=== PATIENT | female | born 1990 | race African-American/Black ===

== ENCOUNTER 2023-09-21 07:09 | Inpatient (IN) | payer MEDICAID ==
[~2023-09-21] VITALS: Ht 165.1 cm; Wt 133.2 kg
[2023-09-21] VITALS (18 sets, daily range): BP systolic 85–140; BP diastolic 48–97; PULSE 59–79; TEMP 97.8–98.7
[~2023-09-21 07:09] MED LIST: IBU800 M1 PO; PERCOCET 325 MG1 TA2 PO
[2023-09-21] MEDS ORDERED: LR 1,000 ML IV SCH (07:15)
--- NOTE | 2023-09-21 07:15 | NUR ---
0715PT AND SPOUSE AMBULATORY TO UNIT FOR SCHEDULED RPT C/S. PT CHANGED INTO GOWN. PT COMFORTABLE IN BED. 0720THIS RN AT BEDSIDE TO PLACE TOCO AND EFM. EFM TRACING CAT I. PT REPORTS PLENTY OF POSITIVE MOVEMENT. PT DENIES ANY CTX. PT DENIES ANY LOF AND DENIES VAGINAL BLEEDING. 0725AMY RN STARTS IV AT THIS TIME. FIRST BAG OF IVF STARTED.
[2023-09-21] MEDS ORDERED: FERROUS SU325 MG/TAB PO (07:38)
[2023-09-21] MEDS ORDERED: PRENATAL TABLET PO (07:38)
[2023-09-21 07:54] LABS: BASO % 0.3 % (0.0-2.0); EOS # 0.1 K/mm3 (0.0-0.7); EOS % 0.9 % (0.0-4.0); GRAN # 4.7 K/mm3 (1.4-6.5); GRAN % 63.4 % (42.2-75.2); HEMATOCRIT 32.3 % (37.0-47.0); LYMPH # 1.9 K/mm3 (1.2-3.4); LYMPH % 26.2 % (20.0-51.0); MEAN CELL VOLUME 65 fl (80.0-100.0); MEAN CORPUSCULAR HEMOGLOBIN 20 pg (27-31); MEAN CORPUSCULAR HGB CONC 31 g/dl (33.0-37.0); MONO # 0.7 K/mm3 (0.1-0.6); MONO % 8.8 % (1.7-9.3); PLATELET COUNT 174 K/mm3 (130-400); RED BLOOD COUNT 4.96 M/mm3 (4.10-5.30); REDCELL DISTRIBUTION WIDTH-CV 16.8 % (11.5-14.5)
--- NOTE | 2023-09-21 08:00 | NUR ---
THIS RN AT BEDSIDE TO GO OVER CONSENTS WITH PT AND SPOUSE. PT STATES SHE REFUSES HEPATITIS B VACCINE, VITAMIN K VACCINE, AND ERYTHROMYCIN EYE OINTMENT. THIS RN DISCUSSES RISK/BENEFIT ABOUT THESE REFUSALS. PT AND SPOUSE VERBALIZES UNDERSTANDING. THIS RN WALKS PARENTS THROUGH THE PROCESS OF 24 HOUR BABY LABS AND HOW THEY WORK. PT VERBALIZES REFUSAL FOR ALL 24 HOURS LABS AT THIS TIME. THIS RN DISCUSSES THE REASON WHY PARENTS REFUSE. PT STATES "FOR GNOSTICIST REASONS, AND WE DON'T WANT ANY INVASIVE PROCEDURES ON OUR DAUGHTER THAT ARE NOT NECESSARY." THIS RN VERBALIZES UNDERSTANDING OF PARENTS WISHES.
[2023-09-21] MEDS ORDERED: Ondansetron 4 MG/2 ML VIAL ONE (09:33)
[2023-09-21] MEDS ORDERED: NS 20 ML IV ONE (09:33)
[2023-09-21] MEDS ORDERED: LR 1,000 ML IV ONE (09:54)
[2023-09-21] MEDS ORDERED: Oxytocin 10 UNITS/ML VIAL ONE (09:57)
[2023-09-21] MEDS ORDERED: Ketorolac 60 MG/2 ML VIAL IM ONE (10:12)
[2023-09-21] MEDS ORDERED: Meperidine 50 MG/ML 1 ML VIAL ONE (10:24)
[2023-09-21] MEDS ORDERED: oxyCODONE/Acetaminophen 5-325 MG TAB PO PRN (10:45)
[2023-09-21] MEDS ORDERED: Magnes Hydrox (MOM) 80 MG/ML 30 ML CUP PO PRN (10:45)
[2023-09-21] MEDS ORDERED: Naloxone 0.4 MG/ML VIAL IV PRN (10:45)
[2023-09-21] MEDS ORDERED: LR 1,000 ML IV PRN (10:45)
[2023-09-21] MEDS ORDERED: Measles/Mumps/Rubella Virus Vaccine Live w Diluent 0.5 ML VIAL SQ SCH (10:45)
[2023-09-21] MEDS ORDERED: Ondansetron 4 MG/2 ML VIAL IV PRN (10:45)
[2023-09-21] MEDS ORDERED: Loratadine 10 MG TAB PO PRN (10:45)
--- NOTE | 2023-09-21 11:38 | NUR ---
PARENTS EDUCATED ON THE IMPORTANCE OF BLOOD SUGAR CHECKING DUE TO MOTHER REFUSING GDM TESTING DURING . PARENTS ACCEPTING OF EDUCATION AND CONTRIBUTE TO CONVERSATION BUT STILL DENY REQUEST TO OBTAIN INFANTS BLOOD SUGAR AT THIS TIME. WHEN ASKED WHY THEY DON'T WANT TO HAVE INFANTS BLOOD SUGAR CHECKED THEY REPORT HAVING "YAZDANISM REASONS". WILL CONTINUE TO EDUCATE THE PARENTS MUCH POSSIBLE AND MONITORING .
[2023-09-21] MEDS ORDERED: Sennosides/Docusate 8.6-50 MG TAB PO SCH (17:00)
[2023-09-21] MEDS ORDERED: Ibuprofen 800 MG TAB PO SCH (17:00)
--- NOTE | 2023-09-21 18:30 | NUR ---
Report recieved at this time. Resting in bed. Denies pain. POC reviewed and whiteboard updated.
[2023-09-21] MEDS ORDERED: traZODone 50 MG TAB PO PRN (21:00)
--- NOTE | 2023-09-21 22:00 | NUR ---
2100 - Upon entering room and going through POC, movement noticed on the bench near the windown in the room. Upon further assessment, the movement was made by a patient's 2 year old daughter. Infant's crib had been pushed up against the bench, blocking the view and there was a pillow supported against the back of the bench and several and bath blankets over the bench where the was noted to be waking from sleep. Infant had a pillow falling over her head and a bottle propped under it while she drank intermittently. Toddler had not been seen upon other visits to the room. Before exiting the room the toddler was waking and crying while the father tended to her needs. 0 - At this time, 1 year old child and significant other remain at bedside. Father in night clothes and noted to be dressing the toddler for bed. After reviewing POC with patient and assessing patient's pain, this nurse asked if the father intended on going home for the night with their 2 y.o. daughter or if there was a plan for a family member or family friend that they intended to have watch their 2 year old through the night. Father/support person replies, "We planned to stay here." This nurse then informed both the patient and the support person that, per hospital policy, children are not allowed to stay the night, it must be an adult. This nurse continued and explained that this information was included in the visitation consent form that was presented and signed upon admit. This nurse stated this policy is in place hospital wide for security/safety, and firecode reasons. Patient and support person were quite and looking at eachother. After approximately 10 minutes, this nurse stated that she would give them time to discuss their options and further develope a plan. 0 - Father had gotten dressed and taken toddler off the unit and then returned again at this time with an carseat. This nurse went to patient's room to assure they were able to make arrangements. Upon entering the room that father/support person stated, "Well, we are about to drop a bomb on you. I don't do separation and we will be asking for her discharge paperwork." This nurse assessed patient bleeding, had her attempt to void - voided 300mls, and discussed current pain status. Patient and significant other informed at this time that there is concern with discharging so soon after surgery because she is at risk of retaining urine and making sure her bleeding, blood pressure, and pain management is well managed. Support person and patient verbalized they understood and would like to be dismissed due to "they do not do separation." 2238 - Dr. Monique notified at this time that patient was the morning , has refused many routine cares throughout prenatally as well as and would like to be dismissed due to 1 year old not being able to stay the night. Dr. Monique to have nurse to ensure that the patient is aware she will not have prescriptions for pain management but could take Tylenol and Motrin at home and that she needs to call the office in the morning but it is not adviced for her to discharge at this time. 2242 - Finance Specialist informed of AMA request. 2315 - AMA paperwork reviewed and included the potential outcomes of increased risk of if leaving against medical advice. Education packet provided regarding - shower at 24 hours out from surgery and remove dressing, keep incision clean and dry, do not lift anything over 10lbs till cleared by physician, may take OC Tylenol and Motrin for pain management, seek medical attention with [facility] that is not relieved by tylenol or changes in vision , abnormal increase in edema, soaking a pad in 1-2 hours, clots the size of a walnut of bigger, and continue to monitor for s/s of infection, monitor for redness/heat/swelling in lower extremities, and continue to watch amount voided to ensure that her bladder is fully empty. Paperwork signed and dated. Copy of paperwork provided to patient. Instructed to call the office first thing in the morning to get an appointment with Dr. Bauer for tomorrow if possible. Patient and significant other verbalized understanding. 2344 - Ambulated off the unit with [employer] at this time. Declined wheelchair.
[2023-09-22] MEDS ORDERED: Ferrous Sulfate 325 MG TAB PO SCH (09:00)
--- NOTE | 2023-09-22 10:08 | NUR ---
electrical worker received consult for family leave AMA after infant is less than 24hrs old, and refusing routine cares. electrical worker reviewed notes and EMAR at length and found that the family has refused 24 hour labs, testing, vaccines and reports this due to jain reasons. CYNTHIA notes mother was also non-compliant with medications and went to few appointments. CYNTHIA notes pt has a 2 year old, Kenya that was snuck and hidden in the hospital overnight. Notes report that the child was blocked from view in the room and the infant had a propped up bottle with a pillow falling in it's face. Parents became upset and left AMA due to not wanting to be . CYNTHIA spoke with header setup operator Sameera who verified the above information. She reports that the family was educated prior that the 2 year-old could not stay and even Director Opal discussed this. CYNTHIA made a CPS intake #[id number] due to concerns. CYNTHIA spoke with Director Erika Ardon to be aware of the above. CYNTHIA spoke with laborer car barn Dr. Bates who does not feel the children are in danger and that it was just weird behavior. He reports that they parents acted appropriately during their encounter. CYNTHIA called [facility] to lay eyes on pt and family. Corporal Campbell reports a welfare check was completed and they are "doing well." CYNTHIA updated Director Erika of this.
== END 2023-09-21 23:44 | disposition home or self-care (01) | DRG 788 ==
LOC: OB 07:09
PROVIDERS: ADMIT Student in an Organized Health Care Education/Training Program
PROC: 10D00Z1 Extraction of Products of Conception, Low, Open Approach (ICD-10-PCS; principal; 2023-09-21)
DX: O32.1XX0 Maternal care for breech presentation, not applicable or unspecified (principal); Z3A.35 35 weeks gestation of pregnancy; Z37.0 Single live birth; O99.214 Obesity complicating childbirth; E66.01 Morbid (severe) obesity due to excess calories; O99.02 Anemia complicating childbirth; O34.83 Maternal care for other abnormalities of pelvic organs, third trimester; N83.201 Unspecified ovarian cyst, right side; Z91.148 Patient's other noncompliance with medication regimen for other reason
CPT/HCPCS: J0690; J1885; J2175; J2405; J2590; J7120